=== PATIENT | female | born 2000 | race African-American/Black ===

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

== ENCOUNTER 2023-04-23 20:13 | Emergency (ER) | payer BC, MEDICAID ==
[~2023-04-23] VITALS: Ht 170.2 cm; Wt 127.6 kg
[2023-04-23] MEDS ORDERED: DexAMETHasone SOD PHOS 10MG/1ML VIAL INJ IM ONE (21:45)
[2023-04-23] MEDS ORDERED: cefTRIAXone SOD 1,000 MG VL IM ONE (21:45)
[2023-04-23] MEDS ORDERED: IBU600T PO (21:48)
[2023-04-23] MEDS ORDERED: LIDV15LQ MT (21:48)
[2023-04-23] MEDS ORDERED: PRED20TA2 PO (21:48)
[2023-04-23] MEDS ORDERED: CLIN300C70 PO (21:48)
[2023-04-23 23:10] VITALS: BP 114/82
== END 2023-04-23 23:28 | disposition home or self-care (01) ==
LOC: ER 20:15
DX: J03.90 Acute tonsillitis, unspecified (principal); Z79.1 Long term (current) use of non-steroidal anti-inflammatories (NSAID); Z79.2 Long term (current) use of antibiotics; Z79.899 Other long term (current) drug therapy; Z88.8 Allergy status to other drugs, medicaments and biological substances
CPT/HCPCS: 96372; 99284; J0696; J1100